=== PATIENT | male | born 1955 | race Caucasian/White ===

== ENCOUNTER 2017-10-24 14:43 | Inpatient (IN) | payer MEDICAID ==
[~2017-10-24] VITALS: Ht 180.3 cm; Wt 89.4 kg
[2017-10-24] MEDS ORDERED: CEFTRIAXONE PMX 1GM/50ML 50 ML IVPB ONE (16:00)
[2017-10-24] MEDS ORDERED: SODIUM CHLORIDE 0.9% 1,000ML IVBOLUS ONE (16:00)
[2017-10-24] MEDS ORDERED: AZITHROMYCIN 500 MG in SODIUM CHLORIDE 0.9% 250 ML IVPB ONE (16:00)
[2017-10-24 16:07] LABS: BASOPHILS # (AUTO) 0.05 x10^3/uL (0-0.1); BASOPHILS % (AUTO) 1 % (0-1); EOSINOPHILS # (AUTO) 0.06 x10^3/uL (0-0.4); EOSINOPHILS % (AUTO) 1 % (1-7); LYMPHOCYTES % (AUTO) 22 % (22-44); MD NO; MEAN CORPUSCULAR HGB CONC 34.3 g/dL (33.2-36.2); MEAN CORPUSCULAR VOLUME 99.1 fL (81-97); MEAN PLATELET VOLUME 8.4 fL (7.4-10.4); MONOCYTES % (AUTO) 10 % (2-9); NEUTROPHILS # (AUTO) 3.81 x10^3/uL (1.8-6.8); NEUTROPHILS % (AUTO) 66 % (42-75); PLATELET COUNT 244 x10^3/uL (130-400); RED BLOOD COUNT 4.76 x10^6/uL (4.38-5.82); RED CELL DISTRIBUTION WIDTH 14.3 % (9.4-14.8)
[2017-10-24 16:13] LABS: RAPID INFLUENZA A Negative (Negative); RAPID INFLUENZA B Negative (Negative)
[2017-10-24 16:17] LABS: ALANINE AMINOTRANSFERASE 28 U/L (12-78); ALBUMIN 4.1 g/dL (3.4-5.0); ANION GAP 11 mmol/L (5-15); CALCIUM 9.3 mg/dL (8.5-10.1); CHLORIDE 102 mmol/L (98-107); CREATININE 1.29 mg/dL (0.7-1.3)
[2017-10-24 16:21] LABS: ALKALINE PHOSPHATASE 58 U/L (45-117); BILIRUBIN,TOTAL 0.9 mg/dL (0.2-1.0); TOTAL PROTEIN 7.8 g/dL (6.4-8.2); TROPONIN I < 0.015 ng/mL (0.000-0.045)
[2017-10-24] MEDS ORDERED: LOSA25TA5 PO ×2 (16:37→22:11)
[2017-10-24] MEDS ORDERED: ASPI-496 PO (16:37)
[2017-10-24] MEDS ORDERED: METO200T47 PO (16:37)
[2017-10-24] MEDS ORDERED: CEFTRIAXONE PMX 1GM/50ML 50 ML ONE (17:02)
[2017-10-24] MEDS ORDERED: OMNIPAQUE 350 MG/ML, 100ML BOTTLE ONE (17:25)
[2017-10-24] MEDS ORDERED: ALBUTEROL/IPRATROPIUM 2.5MG/0.5MG, 3 ML ONE (18:00)
[2017-10-24] MEDS ORDERED: ALBUTEROL/IPRATROPIUM 2.5MG/0.5MG, 3 ML NPPB ONE (18:00)
[2017-10-24] MEDS ORDERED: SODIUM CHLORIDE FLUSH 10ML SYR IVF PRN (18:30)
[2017-10-24 20:00] VITALS: BP 158/65
[2017-10-24] MEDS ORDERED: hydrALAzine 20 MG/ML, 1ML IVPush PRN (20:00)
[2017-10-24] MEDS ORDERED: GUAIFENESIN/DM 200-20MG, 10ML UDC PO PRN (20:00)
[2017-10-24] MEDS ORDERED: ONDANSETRON 2MG/ML, 2ML IVPush PRN (20:00)
[2017-10-24] MEDS ORDERED: LABETALOL 5MG/ML, 20ML IVPush PRN (20:00)
[2017-10-24] MEDS ORDERED: ACETAMINOPHEN 325 MG TABLET PO PRN (20:00)
[2017-10-24] MEDS ORDERED: ALBUTEROL/IPRATROPIUM 2.5MG/0.5MG, 3 ML NPPB PRN (20:30)
[2017-10-24] MEDS ORDERED: OSELTAMIVIR 75 MG CAPSULE PO SCH (21:00)
[2017-10-24] MEDS: SODIUM CHLORIDE 0.9% 1,000 ML IV SCH (21:34)
[2017-10-24] MEDS: methylPREDNISolone SOD SUCC 40 MG/ML IVPush SCH (21:35)
[2017-10-24] MEDS ORDERED: METO-290 PO (22:11)
[2017-10-25 01:59] VITALS: BP 141/88
[2017-10-25] MEDS: methylPREDNISolone SOD SUCC 40 MG/ML IVPush SCH ×4 (03:27→15:51)
[2017-10-25] MEDS: SODIUM CHLORIDE 0.9% 1,000 ML IV SCH ×2 (05:25→13:49)
[2017-10-25 07:22] VITALS: BP 155/89
[2017-10-25] MEDS ORDERED: LOSARTAN 25MG TABLET PO SCH (09:00)
[2017-10-25] MEDS ORDERED: ASPIRIN 81 MG TABLET EC PO SCH (09:00)
[2017-10-25] MEDS ORDERED: POLYETHYLENE GLYCOL 17 GM PACKET PO SCH (09:00)
[2017-10-25] MEDS ORDERED: METOPROLOL SUCCINATE 100 MG TAB.ER.24H PO SCH (09:00)
[2017-10-25 09:25] LABS: BASOPHILS % (AUTO) 0 % (0-1); EOSINOPHILS % (AUTO) 0 % (1-7); LYMPHOCYTES # (AUTO) 0.64 x10^3/uL (1-3.4); LYMPHOCYTES % (AUTO) 19 % (22-44); MD NO; MEAN CORPUSCULAR HEMOGLOBIN 34.3 pg (27.5-34.5); MEAN CORPUSCULAR HGB CONC 34.9 g/dL (33.2-36.2); MEAN CORPUSCULAR VOLUME 98.4 fL (81-97); MEAN PLATELET VOLUME 8.5 fL (7.4-10.4); MONOCYTES # (AUTO) 0.08 x10^3/uL (0.2-0.8); MONOCYTES % (AUTO) 2 % (2-9); NEUTROPHILS % (AUTO) 78 % (42-75); PLATELET COUNT 223 x10^3/uL (130-400); RED CELL DISTRIBUTION WIDTH 13.9 % (9.4-14.8)
[2017-10-25 09:31] LABS: ANION GAP 9 mmol/L (5-15); CALCIUM 8.1 mg/dL (8.5-10.1); CHLORIDE 106 mmol/L (98-107)
[2017-10-25 12:51] VITALS: BP 154/87
[2017-10-25] MEDS ORDERED: PRED10TA PO (15:19)
[2017-10-25] MEDS ORDERED: DOXY100T PO (15:19)
== END 2017-10-25 18:15 | disposition home or self-care (01) | DRG 189 ==
LOC: ED 16:42 → EDIP 18:10 → 4NOR 20:00
PROVIDERS: ADMIT Hospitalist; ATTEND Hospitalist
DX: J96.01 Acute respiratory failure with hypoxia (principal); I71.2 Thoracic aortic aneurysm, without rupture; J44.1 Chronic obstructive pulmonary disease with (acute) exacerbation; B34.9 Viral infection, unspecified; F17.210 Nicotine dependence, cigarettes, uncomplicated; I10 Essential (primary) hypertension; N28.1 Cyst of kidney, acquired
CPT/HCPCS: 36415; 71046; 71275; 80048; 80053; 83605; 84145; 84484; 85025; 87040; 87400; 93005; 94640; 96361; 96365; 96367; J0456; J0696; J7620; Q9967; J2920; J7030; J7050; J7512

== ENCOUNTER 2019-01-21 09:51 | Observation (INO) | payer MEDICAID ==
[~2019-01-21] VITALS: Ht 180.3 cm; Wt 79.9 kg
[~2019-01-21 09:51] MED LIST: ASPI-496 PO; DOXY100T PO; LOSA25TA25 PO; METO-290 PO; METO200T47 PO; PRED10TA PO
--- NOTE | 2019-01-21 10:21 | NUR ---
PT BIB P/V FOR INTERMITTENT DULL, ACHY CP RADIATING TO JAW LASTING ABOUT A MINUTE. PT DENIES N/V OR DIAPHORESIS. PT ALSO REORTS LIGHTHEADEDNESS AT TIMES WITH CP. PT ON MONITOR. CAHRT UP FOR MD. EKG DONE IN TRIAGE.
--- NOTE | 2019-01-21 10:51 | NUR ---
BEDSIDE REPORT FROM GAVIN ORLANDO MD AT BEDSIDE AT THIS TIME
[2019-01-21] MEDS ORDERED: VITAMIN C PO (10:52)
[2019-01-21] MEDS ORDERED: VITAMIN D3 PO (10:52)
[2019-01-21] MEDS ORDERED: UBID100C41 PO (10:52)
[2019-01-21 11:28] LABS: BASOPHILS # (AUTO) 0.03 x10^3/uL (0-0.1); BASOPHILS % (AUTO) 1 % (0-1); EOSINOPHILS # (AUTO) 0.07 x10^3/uL (0-0.4); EOSINOPHILS % (AUTO) 1 % (1-7); LYMPHOCYTES # (AUTO) 1.21 x10^3/uL (1-3.4); LYMPHOCYTES % (AUTO) 21 % (22-44); MD NO; MEAN CORPUSCULAR HEMOGLOBIN 34.5 pg (27.5-34.5); MEAN CORPUSCULAR HGB CONC 33.5 g/dL (33.2-36.2); MEAN CORPUSCULAR VOLUME 103.2 fL (81-97); MEAN PLATELET VOLUME 8.4 fL (7.4-10.4); MONOCYTES % (AUTO) 11 % (2-9); NEUTROPHILS # (AUTO) 3.78 x10^3/uL (1.8-6.8); NEUTROPHILS % (AUTO) 67 % (42-75); PLATELET COUNT 263 x10^3/uL (130-400); RED BLOOD COUNT 5.12 x10^6/uL (4.38-5.82); RED CELL DISTRIBUTION WIDTH 13.6 % (9.4-14.8)
[2019-01-21 11:35] LABS: ALBUMIN 4.2 g/dL (3.4-5.0); ANION GAP 6 mmol/L (5-15); CALCIUM 9.3 mg/dL (8.5-10.1); CHLORIDE 107 mmol/L (98-107)
[2019-01-21 11:39] LABS: TROPONIN I < 0.015 ng/mL (0.000-0.045)
--- NOTE | 2019-01-21 12:02 | NUR ---
MD AT BEDSIDE, PT TO BE ADMITTED. PT RESTING IN GURNEY ON MONITOR. CALL LIGHT WITHIN REACH, STATES NO NEEDS AT THIS TIME
--- NOTE | 2019-01-21 13:03 | NUR ---
REPORT TO RAVINDER ORLANDO
[2019-01-21] MEDS ORDERED: OMNIPAQUE 350 MG/ML, 100ML BOTTLE ONE (13:09)
[2019-01-21 13:32] VITALS: BP 154/101
[2019-01-21 15:22] VITALS: BP 128/87
[2019-01-21] MEDS ORDERED: NITROGLYCERIN 0.4 MG BOTTLE (25 TABS) SL PRN (18:00)
[2019-01-21] MEDS ORDERED: NITROGLYCERIN 0.4 MG/SPRAY SL PRN (18:00)
[2019-01-21] MEDS ORDERED: ACETAMINOPHEN 325 MG TABLET PO PRN (18:00)
[2019-01-21] MEDS ORDERED: ONDANSETRON 2MG/ML, 2ML IVPush PRN (18:00)
[2019-01-21 18:57] LABS: TROPONIN I < 0.015 ng/mL (0.000-0.045)
[2019-01-21 20:35] VITALS: BP 155/96
[2019-01-21] MEDS: HEPARIN 5,000 UNITS/ML, 1ML SQ SCH (20:58)
[2019-01-21] MEDS: LACTATED RINGERS 1,000 ML IV SCH (21:06)
[2019-01-21 23:42] LABS: TROPONIN I < 0.015 ng/mL (0.000-0.045)
[2019-01-22 00:47] VITALS: BP 101/71
[2019-01-22] MEDS: HEPARIN 5,000 UNITS/ML, 1ML SQ SCH ×2 (04:36→13:43)
[2019-01-22 05:32] LABS: BASOPHILS # (AUTO) 0.04 x10^3/uL (0-0.1); BASOPHILS % (AUTO) 1 % (0-1); EOSINOPHILS # (AUTO) 0.18 x10^3/uL (0-0.4); EOSINOPHILS % (AUTO) 3 % (1-7); LYMPHOCYTES % (AUTO) 28 % (22-44); MD NO; MEAN CORPUSCULAR HEMOGLOBIN 35.2 pg (27.5-34.5); MEAN CORPUSCULAR HGB CONC 33.8 g/dL (33.2-36.2); MEAN CORPUSCULAR VOLUME 103.9 fL (81-97); MEAN PLATELET VOLUME 8.3 fL (7.4-10.4); MONOCYTES % (AUTO) 14 % (2-9); NEUTROPHILS # (AUTO) 3.11 x10^3/uL (1.8-6.8); NEUTROPHILS % (AUTO) 54 % (42-75); PLATELET COUNT 256 x10^3/uL (130-400); RED BLOOD COUNT 5.18 x10^6/uL (4.38-5.82); RED CELL DISTRIBUTION WIDTH 13.5 % (9.4-14.8)
[2019-01-22 05:48] LABS: CHLORIDE 106 mmol/L (98-107)
[2019-01-22 06:08] LABS: ANION GAP 10 mmol/L (5-15); CALCIUM 9.4 mg/dL (8.5-10.1)
[2019-01-22] MEDS: LACTATED RINGERS 1,000 ML IV SCH (06:26)
[2019-01-22 08:18] VITALS: BP 169/90
[2019-01-22] MEDS ORDERED: ASPIRIN 81 MG TABLET EC PO SCH (09:00)
[2019-01-22] MEDS ORDERED: LOSARTAN 25MG TABLET PO SCH (09:00)
[2019-01-22] MEDS ORDERED: REGADENOSON 0.4 MG/5 ML SYRINGE ONE (09:20)
[2019-01-22] MEDS ORDERED: CYAN100014 PO (17:04)
[2019-01-22] MEDS ORDERED: CYANOCOBALAMIN 1,000 MCG/ML, 1ML IM ONE (17:30)
== END 2019-01-22 17:42 | disposition home or self-care (01) ==
LOC: ED 10:59 → EDIP 12:38 → INTOOBSV 12:38 → 5SO 13:26
PROVIDERS: ADMIT Internal Medicine; ATTEND Internal Medicine
DX: R07.89 Other chest pain (principal); R01.1 Cardiac murmur, unspecified; I12.9 Hypertensive chronic kidney disease with stage 1 through stage 4 chronic kidney disease, or unspecified chronic kidney disease; N18.9 Chronic kidney disease, unspecified; N17.9 Acute kidney failure, unspecified; D75.89 Other specified diseases of blood and blood-forming organs; F17.200 Nicotine dependence, unspecified, uncomplicated; I71.9 Aortic aneurysm of unspecified site, without rupture; J44.9 Chronic obstructive pulmonary disease, unspecified; Z80.8 Family history of malignant neoplasm of other organs or systems; Z79.899 Other long term (current) drug therapy
CPT/HCPCS: 36415; 71045; 71275; 78452; 80048; 82040; 82607; 83735; 84100; 84443; 84484; 85025; 93005; 93017; 93306; 96360; 96361; 96372; 99284; A9502; C9898; G0378; J2785; J3420; J7120; Q9967

== ENCOUNTER → 2021-03-12 | Outpatient (CLI) | payer MEDICAID ==
[~2021-03-12] MED LIST changes: +CYAN100014 PO; +OMNIPAQUE 350 MG/ML, 100ML BOTTLE ONE; +UBID100C41 PO; +VITAMIN C PO; +VITAMIN D3 PO
== END | disposition home or self-care (01) ==
LOC: CFH 13:13
PROVIDERS: ATTEND Nurse Practitioner
DX: I71.2 Thoracic aortic aneurysm, without rupture (principal); I25.10 Atherosclerotic heart disease of native coronary artery without angina pectoris
CPT/HCPCS: 71275; Q9967